=== PATIENT | male | born 1930 | race Caucasian/White ===

== ENCOUNTER 2018-01-04 15:39 | Observation (INO) ==
[2018-01-04] MEDS ORDERED: DOCUSATE SODIUM 100 MG CAPSULE PO PRN (15:40)
[2018-01-04] MEDS ORDERED: ONDANSETRON 4 MG/2 ML VIAL IV PRN (15:40)
[2018-01-04] MEDS ORDERED: ACETAMINOPHEN 325 MG TABLET PO PRN (15:40)
[2018-01-04] MEDS ORDERED: LOPERAMIDE 2 MG CAPSULE PO PRN (15:50)
[2018-01-04 17:36] LABS: Basophils % 0.5 % (0.0-0.8); Eosinophils # 0.2 10*3/uL (0.0-0.87); Eosinophils % 2.4 % (0.00-10.9); Hematocrit 27.5 VOL% (42.0-52.0); Hemoglobin 8.8 GM/DL (14.0-18.0); Immature Granulocytes % 0.6 %; Immature Granulocytes Absolute 0.04 #; Lymphocytes # 1.3 10*3/uL (1.4-4.0); Lymphocytes % 20.9 % (21.2-54.2); Mean Corpuscular Hemoglobin 30 PG (27-34); Mean Corpuscular Volume 94.5 FL (87-102); Mean Platelet Volume 10.2 FL (9.6-12.0); Monocytes # 0.9 10*3/uL (0.11-0.8); Monocytes % 14.3 % (1.7-12.7); Neutrophils # 3.9 10*3/uL (1.4-7.4); Neutrophils % 61.3 % (38.7-73.9); Platelet Count 286 T/CUMM (130-400); Red Blood Count 2.91 MC/CUMM (3.8-5.5); Red Cell Distribution Width 13.7 % (9.3-17.3); White Blood Count 6.4 T/CUMM (4-12)
[2018-01-04] MEDS: SODIUM CHLORIDE 0.9% 1,000 ML IV SCH (17:43)
[2018-01-04 18:00] LABS: Albumin 3.2 G/DL (3.4-5.0); Bilirubin,Total 0.4 MG/DL (0.2-1.0); Calcium 8.2 MG/DL (8.5-10.1); Osmolality,Calculated 286.3 MOS/KG (273-304); Potassium 4.5 MMOL/L (3.5-5.1); Total Protein 7.1 G/DL (6.4-8.3)
[2018-01-04 18:21] LABS: Apearance,Urine CLEAR (Clear); Bilirubin,Urine Negative (Negative); Blood, Urine Large mg/dL (Negative); Glucose,Urine (UA) Negative (Negative); Ketones,Urine Negative (Negative); Mucus,Urine Occasional /LPF (Occasional); Nitrite,Urine Negative (Negative); Protein,Urine Negative; RBC,Urine 10 /HPF (0-4); Squamous Epithelial Cell,Urine Occasional /HPF (0-10); Urine Color Straw (Yellow); Urine Specific Gravity 1.008 (1.001-1.035); Urine Urobilinogen < 2.0 EU/DL (0.2-1.0); WBC,Urine 20 /HPF (0-6)
[2018-01-04] MEDS ORDERED: MAGNESIUM SULF RIDER 1 GM in PREMIX 1 EACH IV ONE (22:00)
[2018-01-04] MEDS: ENOXAPARIN 30 MG/0.3 ML SYRINGE SUBCUT SCH (22:11)
[2018-01-04] MEDS: SOTALOL 80 MG TABLET PO SCH (22:11)
[2018-01-05 05:58] LABS: Risk Ratio 3.7; VLDL CHOLESTEROL 26.4 MG/DL
[2018-01-05] MEDS: SODIUM CHLORIDE 0.9% 1,000 ML IV SCH ×2 (09:11→20:53)
[2018-01-05] MEDS ORDERED: REGADENOSON 0.4 MG/5 ML SYRINGE IV ONE (09:44)
[2018-01-05] MEDS: DUTASTERIDE 0.5 MG CAPSULE PO SCH (10:41)
[2018-01-05] MEDS: LISINOPRIL 5 MG TABLET PO SCH (10:41)
[2018-01-05] MEDS: PANTOPRAZOLE 40 MG TABLET PO SCH (10:41)
[2018-01-05] MEDS: PRAVASTATIN 40 MG TABLET PO SCH (10:42)
[2018-01-05] MEDS: SOTALOL 80 MG TABLET PO SCH ×2 (10:42→20:53)
[2018-01-05] MEDS: ASPIRIN CHEW 81 MG TABLET PO SCH (10:42)
[2018-01-05] MEDS: ENOXAPARIN 30 MG/0.3 ML SYRINGE SUBCUT SCH (20:53)
[2018-01-06 09:22] LABS: Basophils % 0.3 % (0.0-0.8); Eosinophils # 0.1 10*3/uL (0.0-0.87); Eosinophils % 1.2 % (0.00-10.9); Hematocrit 25.6 VOL% (42.0-52.0); Hemoglobin 8.7 GM/DL (14.0-18.0); Immature Granulocytes % 0.2 %; Immature Granulocytes Absolute 0.01 #; Lymphocytes # 0.9 10*3/uL (1.4-4.0); Lymphocytes % 13.8 % (21.2-54.2); Mean Corpuscular Hemoglobin 31 PG (27-34); Mean Corpuscular Volume 90.5 FL (87-102); Mean Platelet Volume 10.5 FL (9.6-12.0); Monocytes # 0.7 10*3/uL (0.11-0.8); Monocytes % 11.2 % (1.7-12.7); Neutrophils # 4.8 10*3/uL (1.4-7.4); Neutrophils % 73.3 % (38.7-73.9); Platelet Count 251 T/CUMM (130-400); Red Blood Count 2.83 MC/CUMM (3.8-5.5); Red Cell Distribution Width 13.5 % (9.3-17.3); White Blood Count 6.5 T/CUMM (4-12)
[2018-01-06] MEDS: PRAVASTATIN 40 MG TABLET PO SCH (09:26)
[2018-01-06] MEDS: LISINOPRIL 5 MG TABLET PO SCH (09:26)
[2018-01-06] MEDS: DUTASTERIDE 0.5 MG CAPSULE PO SCH (09:26)
[2018-01-06] MEDS: SOTALOL 80 MG TABLET PO SCH (09:26)
[2018-01-06] MEDS: ASPIRIN CHEW 81 MG TABLET PO SCH (09:27)
[2018-01-06] MEDS: PANTOPRAZOLE 40 MG TABLET PO SCH (09:27)
[2018-01-06] MEDS: SODIUM CHLORIDE 0.9% 1,000 ML IV SCH (09:28)
[2018-01-06 09:40] LABS: Osmolality,Calculated 283.3 MOS/KG (273-304)
[2018-01-06] MEDS ORDERED: MAGNESIUM SULF RIDER 2 GM in PREMIX 1 EACH IV ONE (09:58)
[2018-01-06] MEDS ORDERED: SODIUM CHLORIDE 0.9% 1,000 ML IV PRN (09:59)
[2018-01-06 17:01] VITALS: BP 110/52
== END 2018-01-06 16:45 | disposition home or self-care (01) ==
LOC: N.2E
PROVIDERS: ADMIT Family Medicine; ATTEND Family Medicine

== ENCOUNTER 2018-05-12 11:16 | Inpatient (IN) ==
[2018-05-12 12:36] LABS: Basophils % 0.6 % (0.0-0.8); Eosinophils # 0.1 10*3/uL (0.0-0.87); Eosinophils % 1.3 % (0.00-10.9); Hematocrit 24.3 VOL% (42.0-52.0); Hemoglobin 7.8 GM/DL (14.0-18.0); Immature Granulocytes % 0.5 %; Immature Granulocytes Absolute 0.03 #; Lymphocytes # 1.1 10*3/uL (1.4-4.0); Lymphocytes % 16.7 % (21.2-54.2); Mean Corpuscular HGB Conc 32.1 GM/DL (32-36); Mean Corpuscular Hemoglobin 31 PG (27-34); Mean Corpuscular Volume 96.4 FL (87-102); Mean Platelet Volume 10.5 FL (9.6-12.0); Monocytes % 16.1 % (1.7-12.7); Neutrophils # 4.1 10*3/uL (1.4-7.4); Neutrophils % 64.8 % (38.7-73.9); Platelet Count 202 T/CUMM (130-400); Red Blood Count 2.52 MC/CUMM (3.8-5.5); Red Cell Distribution Width 15.8 % (9.3-17.3); White Blood Count 6.3 T/CUMM (4-12)
[2018-05-12 12:52] LABS: Calcium 8.5 MG/DL (8.5-10.1); Osmolality,Calculated 283.7 MOS/KG (273-304); Potassium 4.8 MMOL/L (3.5-5.1)
[2018-05-12 13:07] LABS: Alanine Aminotransferase 49 U/L (16-61); Albumin 2.9 G/DL (3.4-5.0); Alkaline Phosphatase 197 U/L (45-117); Aspartate Amino Transferase 64 U/L (0-37); Bilirubin,Direct < 0.100 MG/DL (0.0-0.20); Bilirubin,Indirect 0.3 MG/DL (0.0-1.0); Bilirubin,Total < 0.39 MG/DL (0.2-1.0); Total Protein 6.7 G/DL (6.4-8.3)
[2018-05-12 13:14] LABS: Band Neutrophils 1 % (0-10); Eosinophils 3 % (0-10); Lymphocytes 15 % (20-55); Segmented Neutrophils 67 % (50-85); Total Cells Counted 100
[2018-05-12 13:15] LABS: Anisocytosis 1+; Hypochromasia 1+
[2018-05-12 13:18] LABS: Microcytosis 1+
[2018-05-12 13:19] LABS: Platelet Estimate Normal
[2018-05-12] MEDS ORDERED: DILTIAZEM 50 MG/10 ML VIAL IV STA (13:20)
[2018-05-12] MEDS ORDERED: dilTIAZem Drip 125 MG/125 ML PREMIX IV SCH (13:30)
[2018-05-12] MEDS ORDERED: ONDANSETRON 4 MG/2 ML VIAL IV PRN (14:04)
[2018-05-12] MEDS ORDERED: ACETAMINOPHEN 325 MG TABLET PO PRN (14:04)
[2018-05-12 14:09] LABS: PT Patient Result 10.9 SECS; Partial Thromboplastin Time 23.8 SECS (0-40)
[2018-05-12] MEDS ORDERED: SODIUM CHLORIDE 0.9% 1,000 ML IV PRN (14:09)
[2018-05-12 16:23] LABS: Apearance,Urine CLOUDY (Clear); Bilirubin,Urine Negative (Negative); Blood, Urine Large mg/dL (Negative); Glucose,Urine (UA) Negative (Negative); Hyaline Casts,Urine 2 /LPF (0-3); Ketones,Urine Negative (Negative); Mucus,Urine Occasional /LPF (Occasional); Nitrite,Urine Negative (Negative); Protein,Urine Negative; RBC,Urine 241 /HPF (0-4); Squamous Epithelial Cell,Urine Occasional /HPF (0-10); Urine Color Yellow (Yellow); Urine Urobilinogen < 2.0 EU/DL (0.2-1.0)
[2018-05-12] MEDS: MAGNESIUM CHLORIDE 64 MG TABLET PO SCH (17:02)
[2018-05-12] MEDS: DOCUSATE SODIUM 100 MG CAPSULE PO SCH (20:53)
[2018-05-12] MEDS: SOTALOL 80 MG TABLET PO SCH (20:53)
[2018-05-12] MEDS: TAMSULOSIN 0.4 MG CAPSULE PO SCH (20:53)
[2018-05-12] MEDS: SODIUM CHLORIDE 0.45% 1,000 ML IV SCH ×2 (23:50→23:56)
[2018-05-13 01:29] LABS: Basophils % 0.5 % (0.0-0.8); Eosinophils # 0.1 10*3/uL (0.0-0.87); Eosinophils % 2.2 % (0.00-10.9); Hematocrit 27.4 VOL% (42.0-52.0); Immature Granulocytes % 0.7 %; Immature Granulocytes Absolute 0.04 #; Lymphocytes # 0.8 10*3/uL (1.4-4.0); Mean Corpuscular HGB Conc 32.8 GM/DL (32-36); Mean Corpuscular Hemoglobin 30 PG (27-34); Mean Corpuscular Volume 92.3 FL (87-102); Mean Platelet Volume 10.7 FL (9.6-12.0); Monocytes # 0.9 10*3/uL (0.11-0.8); Monocytes % 14.2 % (1.7-12.7); Neutrophils # 4.2 10*3/uL (1.4-7.4); Neutrophils % 69.4 % (38.7-73.9); Platelet Count 160 T/CUMM (130-400); Red Blood Count 2.97 MC/CUMM (3.8-5.5); Red Cell Distribution Width 15.6 % (9.3-17.3)
[2018-05-13 01:51] LABS: Calcium 8.1 MG/DL (8.5-10.1); Osmolality,Calculated 292.1 MOS/KG (273-304); Potassium 4.1 MMOL/L (3.5-5.1)
[2018-05-13] MEDS: SODIUM CHLORIDE 0.45% 1,000 ML IV SCH ×2 (07:24→16:34)
[2018-05-13] MEDS: SOTALOL 80 MG TABLET PO SCH ×2 (08:11→20:18)
[2018-05-13] MEDS: BICALUTAMIDE 50 MG TABLET PO SCH (08:12)
[2018-05-13] MEDS: DOCUSATE SODIUM 100 MG CAPSULE PO SCH ×2 (08:12→20:17)
[2018-05-13] MEDS: PANTOPRAZOLE 40 MG TABLET PO SCH (08:12)
[2018-05-13] MEDS: LACTOBACILLUS ACIDOPHILUS/BULGARICUS CAPLET PO SCH (08:12)
[2018-05-13] MEDS: DUTASTERIDE 0.5 MG CAPSULE PO SCH (08:13)
[2018-05-13] MEDS: SIMVASTATIN 20 MG TABLET PO SCH (08:13)
[2018-05-13] MEDS: TAMSULOSIN 0.4 MG CAPSULE PO SCH ×2 (08:13→20:17)
[2018-05-13] MEDS: MULTIVITAMIN (CENTRUM) TABLET PO SCH (08:13)
[2018-05-13] MEDS ORDERED: NF- (Cyanocobalamin (Vitamin B-12) [Vitamin B-12] 5,000 MCG) SL SCH (09:00)
[2018-05-13] MEDS ORDERED: PANTOPRAZOLE 40 MG TABLET PO SCH (09:00)
[2018-05-13 11:01] LABS: Cancer Antigen 19-9 274.8 U/ML (0-37)
[2018-05-13 13:17] LABS: Carcinoembryonic Antigen 3817.3 NG/ML (0.0-5.0)
[2018-05-14] MEDS: SODIUM CHLORIDE 0.45% 1,000 ML IV SCH ×2 (01:08→07:47)
[2018-05-14 06:12] LABS: Basophils % 0.5 % (0.0-0.8); Eosinophils # 0.1 10*3/uL (0.0-0.87); Eosinophils % 1.7 % (0.00-10.9); Hematocrit 26.6 VOL% (42.0-52.0); Hemoglobin 8.7 GM/DL (14.0-18.0); Immature Granulocytes % 0.6 %; Immature Granulocytes Absolute 0.04 #; Lymphocytes # 0.8 10*3/uL (1.4-4.0); Lymphocytes % 11.8 % (21.2-54.2); Mean Corpuscular HGB Conc 32.7 GM/DL (32-36); Mean Corpuscular Hemoglobin 31 PG (27-34); Mean Corpuscular Volume 93.3 FL (87-102); Mean Platelet Volume 11.2 FL (9.6-12.0); Monocytes # 1.1 10*3/uL (0.11-0.8); Neutrophils # 4.6 10*3/uL (1.4-7.4); Neutrophils % 69.4 % (38.7-73.9); Platelet Count 160 T/CUMM (130-400); Red Blood Count 2.85 MC/CUMM (3.8-5.5); Red Cell Distribution Width 15.9 % (9.3-17.3); White Blood Count 6.6 T/CUMM (4-12)
[2018-05-14 06:33] LABS: Osmolality,Calculated 284.4 MOS/KG (273-304); Potassium 3.9 MMOL/L (3.5-5.1)
[2018-05-14 07:55] LABS: Anisocytosis 1+; Band Neutrophils 10 % (0-10); Eosinophils 4 % (0-10); Lymphocytes 13 % (20-55); Macrocytosis 1+; Platelet Estimate Normal; Segmented Neutrophils 50 % (50-85); Total Cells Counted 100
[2018-05-14] MEDS: BICALUTAMIDE 50 MG TABLET PO SCH (08:46)
[2018-05-14] MEDS: DUTASTERIDE 0.5 MG CAPSULE PO SCH (08:46)
[2018-05-14] MEDS: MULTIVITAMIN (CENTRUM) TABLET PO SCH (08:46)
[2018-05-14] MEDS: PANTOPRAZOLE 40 MG TABLET PO SCH (08:46)
[2018-05-14] MEDS: SOTALOL 80 MG TABLET PO SCH ×2 (08:46→21:43)
[2018-05-14] MEDS: DOCUSATE SODIUM 100 MG CAPSULE PO SCH ×2 (08:46→21:42)
[2018-05-14] MEDS: TAMSULOSIN 0.4 MG CAPSULE PO SCH ×2 (08:47→21:42)
[2018-05-14] MEDS: SIMVASTATIN 20 MG TABLET PO SCH (08:47)
[2018-05-14] MEDS: LACTOBACILLUS ACIDOPHILUS/BULGARICUS CAPLET PO SCH (08:47)
[2018-05-14] MEDS: cefTRIAXone 1,000 MG in SYRINGE 1 EACH IV SCH (12:37)
[2018-05-14] MEDS ORDERED: EPINEPHrine 1 MG/ML VIAL ONE ×2 (12:51→12:55)
[2018-05-14] MEDS ORDERED: AMIODARONE INJ 450 MG in DEXTROSE 5% 241 ML IV SCH (13:10)
[2018-05-14] MEDS ORDERED: AMIODARONE 450 MG/9 ML VIAL IV ONE (13:15)
[2018-05-14] MEDS ORDERED: PHENYLEPHRINE DRIP 40 MG/250 ML PREMIX IV ONE (13:19)
[2018-05-14] MEDS: PROPOFOL 1,000 MG/100 ML BOTTLE IV SCH (13:20)
[2018-05-14 13:28] LABS: Basophils % 0.2 % (0.0-0.8); Eosinophils % 0.2 % (0.00-10.9); Hematocrit 45.3 VOL% (42.0-52.0); Hemoglobin 14.6 GM/DL (14.0-18.0); Immature Granulocytes % 0.6 %; Immature Granulocytes Absolute 0.03 #; Lymphocytes # 3.5 10*3/uL (1.4-4.0); Lymphocytes % 66.5 % (21.2-54.2); Mean Corpuscular HGB Conc 32.2 GM/DL (32-36); Mean Corpuscular Hemoglobin 30 PG (27-34); Mean Corpuscular Volume 93.8 FL (87-102); Monocytes # 0.3 10*3/uL (0.11-0.8); Monocytes % 5.9 % (1.7-12.7); Neutrophils # 1.4 10*3/uL (1.4-7.4); Neutrophils % 26.6 % (38.7-73.9); Platelet Count 181 T/CUMM (130-400); Red Blood Count 4.83 MC/CUMM (3.8-5.5); Red Cell Distribution Width 16.2 % (9.3-17.3); White Blood Count 5.2 T/CUMM (4-12)
[2018-05-14] MEDS ORDERED: methylPREDNISolone SOD SUC 125 MG/2 ML VIAL ONE (13:29)
[2018-05-14] MEDS: PHENYLEPHRINE DRIP 40 MG/250 ML PREMIX IV PRN ×3 (13:30→21:50)
[2018-05-14] MEDS ORDERED: methylPREDNISolone SOD SUC 125 MG/2 ML VIAL IV ONE (13:30)
[2018-05-14] MEDS ORDERED: PROPOFOL 1,000 MG/100 ML BOTTLE IV ONE (13:37)
[2018-05-14 13:42] LABS: Calcium 8.1 MG/DL (8.5-10.1); Osmolality,Calculated 277.1 MOS/KG (273-304); Potassium 4.9 MMOL/L (3.5-5.1)
[2018-05-14 13:44] LABS: Troponin I < 0.015 NG/ML (0.00-0.045)
[2018-05-14 13:48] LABS: Lymphocytes 66 % (20-55); Segmented Neutrophils 28 % (50-85); Total Cells Counted 100
[2018-05-14 13:49] LABS: Platelet Estimate Adequate
[2018-05-14 13:51] LABS: ABG Oxygen Saturation 99.1 % (95-100); ABG PCO2 37.1 MM HG (35-48); ABG TCO2 11.2 MMOL/L (23-27); Pt O2 Delivery Device Ventilator
[2018-05-14 13:58] LABS: ABG PH 7.123 (7.35-7.45)
[2018-05-14] MEDS ORDERED: SODIUM BICARBONATE 50 MEQ/50 ML SYRINGE IV ONE (14:03)
[2018-05-14 16:00] LABS: ABG Base Excess -12.6 MMOL/L (-2.5-2.5); ABG HCO3 14.8 MMOL/L (20-26); ABG PCO2 29.9 MM HG (35-48); ABG PH 7.261 (7.35-7.45); Allen Test Positive; Pt O2 Delivery Device Ventilator
[2018-05-14] MEDS: SODIUM BICARB INJ 100 MEQ in DEXTROSE 5% 1,000 ML IV SCH (17:44)
[2018-05-14] MEDS: AMIODARONE INJ 450 MG in DEXTROSE 5% 241 ML IV SCH (21:00)
[2018-05-15] MEDS: PHENYLEPHRINE DRIP 40 MG/250 ML PREMIX IV PRN ×3 (03:26→19:01)
[2018-05-15 03:44] LABS: ABG Oxygen Saturation 99.3 % (95-100); ABG PCO2 27.4 MM HG (35-48); ABG PH 7.357 (7.35-7.45); ABG PO2 251.3 MM HG (80-95); ABG TCO2 15.9 MMOL/L (23-27); Allen Test Positive; Pt O2 Delivery Device Ventilator
[2018-05-15] MEDS: PROPOFOL 1,000 MG/100 ML BOTTLE IV SCH ×2 (04:35→17:41)
[2018-05-15 04:41] LABS: Basophils % 0.2 % (0.0-0.8); Hematocrit 36.1 VOL% (42.0-52.0); Hemoglobin 11.6 GM/DL (14.0-18.0); Immature Granulocytes % 2.4 %; Immature Granulocytes Absolute 0.63 #; Lymphocytes # 1.7 10*3/uL (1.4-4.0); Lymphocytes % 6.5 % (21.2-54.2); Mean Corpuscular HGB Conc 32.1 GM/DL (32-36); Mean Corpuscular Hemoglobin 30 PG (27-34); Mean Corpuscular Volume 92.6 FL (87-102); Mean Platelet Volume 11.4 FL (9.6-12.0); Monocytes # 2.1 10*3/uL (0.11-0.8); Monocytes % 8.1 % (1.7-12.7); NRBC # 0.02 10*3/uL; Neutrophils # 21.8 10*3/uL (1.4-7.4); Neutrophils % 82.8 % (38.7-73.9); Platelet Count 229 T/CUMM (130-400); Red Cell Distribution Width 16.4 % (9.3-17.3); White Blood Count 26.3 T/CUMM (4-12)
[2018-05-15 04:51] LABS: Calcium 7.3 MG/DL (8.5-10.1); Osmolality,Calculated 288.7 MOS/KG (273-304); Potassium 5.1 MMOL/L (3.5-5.1)
[2018-05-15 04:52] LABS: Calcium 7.4 MG/DL (8.5-10.1); Osmolality,Calculated 287.8 MOS/KG (273-304); Potassium 5.1 MMOL/L (3.5-5.1)
[2018-05-15 05:10] LABS: Anisocytosis 1+; Band Neutrophils 7 % (0-10); Lymphocytes 5 % (20-55); Macrocytosis 1+; Ovalocytes 1+; Platelet Estimate Normal; Segmented Neutrophils 82 % (50-85); Total Cells Counted 100
[2018-05-15 05:12] LABS: CKMB % 2.8 %
[2018-05-15 05:18] LABS: Troponin I 1.47 NG/ML (0.00-0.045)
[2018-05-15] MEDS: SODIUM BICARB INJ 100 MEQ in DEXTROSE 5% 1,000 ML IV SCH ×2 (05:22→16:03)
[2018-05-15] MEDS: PANTOPRAZOLE 40 MG TABLET PO SCH (08:32)
[2018-05-15] MEDS: DUTASTERIDE 0.5 MG CAPSULE PO SCH (08:32)
[2018-05-15] MEDS: BICALUTAMIDE 50 MG TABLET PO SCH (08:32)
[2018-05-15] MEDS: LACTOBACILLUS ACIDOPHILUS/BULGARICUS CAPLET PO SCH (08:33)
[2018-05-15] MEDS: DOCUSATE SODIUM 100 MG CAPSULE PO SCH ×2 (08:33→21:26)
[2018-05-15] MEDS: SOTALOL 80 MG TABLET PO SCH ×2 (08:33→22:32)
[2018-05-15] MEDS: TAMSULOSIN 0.4 MG CAPSULE PO SCH ×2 (08:33→21:26)
[2018-05-15] MEDS: MULTIVITAMIN (CENTRUM) TABLET PO SCH (08:33)
[2018-05-15] MEDS: SIMVASTATIN 20 MG TABLET PO SCH (08:33)
[2018-05-15] MEDS: ZINC OXIDE PASTE 113 GM TUBE TOP SCH ×2 (11:37→21:27)
[2018-05-15] MEDS: cefTRIAXone 1,000 MG in SYRINGE 1 EACH IV SCH (12:16)
[2018-05-15] MEDS: CIPROFLOXACIN INJ 200 MG in PREMIX 1 EACH IV SCH ×2 (12:16→21:26)
[2018-05-15] MEDS: AMIODARONE INJ 450 MG in DEXTROSE 5% 241 ML IV SCH (12:17)
[2018-05-15] MEDS: MAGNESIUM CHLORIDE 64 MG TABLET PO SCH (16:08)
[2018-05-15 17:59] LABS: ABG Base Excess -6.4 MMOL/L (-2.5-2.5); ABG HCO3 19.2 MMOL/L (20-26); ABG Oxygen Saturation 98.9 % (95-100); ABG PCO2 31.5 MM HG (35-48); ABG PH 7.366 (7.35-7.45); ABG TCO2 16.4 MMOL/L (23-27)
[2018-05-16] MEDS: PHENYLEPHRINE DRIP 40 MG/250 ML PREMIX IV PRN ×2 (00:51→09:13)
[2018-05-16] MEDS: AMIODARONE INJ 450 MG in DEXTROSE 5% 241 ML IV SCH (03:31)
[2018-05-16] MEDS: SODIUM BICARB INJ 100 MEQ in DEXTROSE 5% 1,000 ML IV SCH (04:01)
[2018-05-16 04:09] LABS: Basophils % 0.1 % (0.0-0.8); Eosinophils % 0.1 % (0.00-10.9); Hematocrit 28.8 VOL% (42.0-52.0); Hemoglobin 9.3 GM/DL (14.0-18.0); Immature Granulocytes % 0.8 %; Immature Granulocytes Absolute 0.12 #; Lymphocytes # 0.9 10*3/uL (1.4-4.0); Mean Corpuscular HGB Conc 32.3 GM/DL (32-36); Mean Corpuscular Hemoglobin 30 PG (27-34); Mean Platelet Volume 11.5 FL (9.6-12.0); Monocytes # 1.4 10*3/uL (0.11-0.8); Monocytes % 8.9 % (1.7-12.7); Neutrophils # 12.8 10*3/uL (1.4-7.4); Neutrophils % 84.1 % (38.7-73.9); Platelet Count 153 T/CUMM (130-400); Red Blood Count 3.13 MC/CUMM (3.8-5.5); Red Cell Distribution Width 16.2 % (9.3-17.3); White Blood Count 15.2 T/CUMM (4-12)
[2018-05-16 04:33] LABS: Calcium 7.1 MG/DL (8.5-10.1); Osmolality,Calculated 283.2 MOS/KG (273-304); Potassium 4.9 MMOL/L (3.5-5.1)
[2018-05-16 04:36] LABS: ABG Base Excess -3.8 MMOL/L (-2.5-2.5); ABG HCO3 21.2 MMOL/L (20-26); ABG Oxygen Saturation 95.8 % (95-100); ABG PCO2 30.3 MM HG (35-48); ABG PH 7.423 (7.35-7.45); ABG PO2 76.7 MM HG (80-95); ABG TCO2 18.1 MMOL/L (23-27)
[2018-05-16] MEDS ORDERED: oxyCODONE/ACETAMINOPHEN 5-325 MG TABLET PO PRN (08:04)
[2018-05-16] MEDS: PANTOPRAZOLE 40 MG TABLET PO SCH (08:10)
[2018-05-16] MEDS: DUTASTERIDE 0.5 MG CAPSULE PO SCH (08:10)
[2018-05-16] MEDS: BICALUTAMIDE 50 MG TABLET PO SCH (08:10)
[2018-05-16] MEDS: TAMSULOSIN 0.4 MG CAPSULE PO SCH (08:10)
[2018-05-16] MEDS: DOCUSATE SODIUM 100 MG CAPSULE PO SCH (08:10)
[2018-05-16] MEDS: SIMVASTATIN 20 MG TABLET PO SCH (08:10)
[2018-05-16] MEDS: MULTIVITAMIN (CENTRUM) TABLET PO SCH (08:10)
[2018-05-16] MEDS: LACTOBACILLUS ACIDOPHILUS/BULGARICUS CAPLET PO SCH (08:10)
[2018-05-16] MEDS: ZINC OXIDE PASTE 113 GM TUBE TOP SCH (08:11)
[2018-05-16] MEDS: CIPROFLOXACIN INJ 200 MG in PREMIX 1 EACH IV SCH (09:36)
[2018-05-16] MEDS ORDERED: MORPHINE 4 MG/1 ML VIAL IV PRN (10:56)
[2018-05-16] MEDS ORDERED: LORazepam 2 MG/1 ML VIAL IV PRN (10:57)
[2018-05-16] MEDS: MORPHINE 4 MG/1 ML VIAL IV PRN ×2 (18:19→19:47)
[2018-05-16] MEDS: LORazepam 2 MG/1 ML VIAL IV PRN (19:52)
[2018-05-16] MEDS ORDERED: ACETAMINOPHEN 650 MG SUPP RECTAL PRN (21:00)
[2018-05-17] MEDS: SODIUM BICARB INJ 100 MEQ in DEXTROSE 5% 1,000 ML IV SCH ×2 (00:50→00:51)
[2018-05-17] MEDS: DOCUSATE SODIUM 100 MG CAPSULE PO SCH (00:52)
[2018-05-17] MEDS: TAMSULOSIN 0.4 MG CAPSULE PO SCH (00:52)
[2018-05-17] MEDS: ZINC OXIDE PASTE 113 GM TUBE TOP SCH ×3 (00:52→21:03)
[2018-05-17] MEDS: MORPHINE 4 MG/1 ML VIAL IV PRN ×2 (02:02→14:09)
[2018-05-17 05:38] LABS: Calcium 6.7 MG/DL (8.5-10.1); Osmolality,Calculated 290.2 MOS/KG (273-304)
[2018-05-17 05:54] LABS: Potassium 6.1 MMOL/L (3.5-5.1)
[2018-05-17 06:24] LABS: Basophils % 0.1 % (0.0-0.8); Eosinophils % 0.1 % (0.00-10.9); Hematocrit 27.7 VOL% (42.0-52.0); Immature Granulocytes % 0.8 %; Immature Granulocytes Absolute 0.09 #; Lymphocytes # 0.8 10*3/uL (1.4-4.0); Lymphocytes % 7.1 % (21.2-54.2); Mean Corpuscular HGB Conc 32.5 GM/DL (32-36); Mean Corpuscular Hemoglobin 31 PG (27-34); Mean Corpuscular Volume 94.5 FL (87-102); Mean Platelet Volume 10.9 FL (9.6-12.0); Monocytes # 0.9 10*3/uL (0.11-0.8); Monocytes % 8.7 % (1.7-12.7); Neutrophils % 83.2 % (38.7-73.9); Platelet Count 126 T/CUMM (130-400); Red Blood Count 2.93 MC/CUMM (3.8-5.5); Red Cell Distribution Width 16.1 % (9.3-17.3); White Blood Count 10.8 T/CUMM (4-12)
[2018-05-18 00:26] VITALS: BP 88/53
[2018-05-18] MEDS: MORPHINE 4 MG/1 ML VIAL IV PRN ×4 (01:17→11:27)
[2018-05-18] MEDS: LORazepam 2 MG/1 ML VIAL IV PRN ×2 (06:08→11:23)
[2018-05-18] MEDS ORDERED: fentaNYL 50 MCG/HR PATCH TRANSDERM SCH (10:00)
[2018-05-18] MEDS: ZINC OXIDE PASTE 113 GM TUBE TOP SCH (11:33)
== END 2018-05-18 14:10 | disposition expired | DRG 695 ==
LOC: N.ED 11:16 → N.EDINP 14:04 → N.2E 14:37 → N.ICU 05-14 13:12 → N.4E 05-16 13:45
PROVIDERS: ADMIT Family Medicine; ATTEND Family Medicine